=== PATIENT | male | born 1995 | race Caucasian/White ===

== ENCOUNTER 2021-05-07 10:19 | Emergency (ER) | payer BC ==
--- OUTSIDE RECORDS SUMMARY | 2021-05-07 10:22 | XMS REPORT | Continuity of Care Document ---
:1995 Author Organization [facility] t Address [address] [place] [address] Care Team Providers Name Role Phone Prezas DO Primary Care Physician LAB90 Attending Clinician Unavailable Prezas DO Attending Clinician Payers Payer Name Policy Type Policy Number Effective Date Expiration Date S ource BCBS 2 [id number] 2021 00:00:00 Problems Condition Condition Condition Status Onset Resolution Last Treating Co mments Source Name Details Category Date Date Treatment Clinician Date Epistaxis Epistaxis Disease Active Abundio josey 3-04 Seybold 00:00: 00 Tobacco Tobacco Disease Active Juan Carlos use use 3-04 Seybold 00:00: 00 Current Current Disease Active Juan Carlos every day every day 3-04 Seyb old vaping vaping 00:00: 00 Allergies, Adverse Reactions, Alerts Allergy Allergy Status Severity Reaction(s) Onset Inactive Treating Comm ents Source Name Type Date Date Clinician Penicill Propensi Active Juan Carlos in G ty to 3-04 Seybold adverse 00:00: reaction 00 s Social History Social Habit Start Date Stop Date Quantity Comments Source History of tobacco 2014-04-14 Cigarette Smoker Juan Carlos Snider use 00:00:00 Exposure to Not sure Juan Carlos collins SARS-CoV-2 (event) Education 2021-04-14 2021-04-14 12 Juan Carlos Snider 00:00:00 00:00:00 Cigarettes smoked 2021-04-14 2021-04-14 Juan Carlos Snider current (pack per 00:00:00 00:00:00 day) - Reported Tobacco use and 2021-04-14 2021-04-14 Former smokeless Abundio Snider exposure 00:00:00 00:00:00 tobacco user Alcohol intake 2021-04-14 2021-04-14 Ex-drinker Juan Carlos Alcaraz bold 00:00:00 00:00:00 (finding) Sex [birth year] Juan Carlos garcía 00:00:00 00:00:00 Smoking Status Start Date Stop Date Source Smokes tobacco daily 2021-04-14 00:00:00 Juan Carlos Snider Medications Ordered Filled Start Stop Current Ordering Indication Dosage Frequency Signature Comments Components Source Medication Medication Date Date Medication? Clinician (SIG) Name Name No known No No known Lazaro tucker medications - medication Se ybold 12:59: s 01 Vital Signs Vital Name Observation Time Observation Value Comments Source Systolic blood pressure 2021-04-14 18:57:00 129 mm[Hg] Juan Carlos Joseybgeraldine Diastolic blood 2021-04-14 18:57:00 87 mm[Hg] Lazaro tucker Seybgeraldine pressure Heart rate 2021-04-14 18:57:00 74 /min Juan Carlossteven sinha Body temperature 2021-04-14 18:57:00 36.56 Talia Torrimarie owens Seybgeraldine Respiratory rate 2021-04-14 18:57:00 14 /min Torri Snider Body height 2021-04-14 18:57:00 193 cm Juan Carlos sinha Body weight 2021-04-14 18:57:00 85.276 kg Juan Carlossteven beyercong BMI 2021-04-14 18:57:00 22.88 kg/m2 Juan Carlos Maire ernestine Procedures This patient has no known procedures. Encounters Start End Encounter Admission Attending Care Care Encounter Source Date/Time Date/Time Type Type Clinicians Facility Department ID 2021-04-14 2021-04-14 Outpatient LAB90 JUAN CARLOS RANGEL [id number] Juan Carlos 14:15:00 14:15:00 Seybol d 2021-04-14 2021-04-14 Office João Joel [id number] Juan Carlos 13:30:00 14:00:00 Visit Santiago Yanes [id number] Se raquel [id number] Results This patient has no known results.
--- NOTE | 2021-05-07 11:21 | RAD REPORT ---
EXAM DESCRIPTION: RAD - Foot Left 3 View - 05/07/2021 10:50 am CLINICAL HISTORY: Left great toe pain COMPARISON: No comparisons FINDINGS: No acute fracture. No malalignment. No significant focal degenerative changes. IMPRESSION: No acute osseous abnormality involving the left foot.
--- NOTE | 2021-05-07 11:23 | RAD REPORT ---
EXAM DESCRIPTION: RAD - Shoulder Left 2 View - 05/07/2021 10:50 am CLINICAL HISTORY: PAIN COMPARISON: No comparisons FINDINGS/IMPRESSION: No acute fracture. No malalignment. No significant focal degenerative changes.
--- NOTE | 2021-05-07 11:28 | RAD REPORT ---
EXAM DESCRIPTION: CT - Head Brain Wo Cont - 05/07/2021 11:22 am CLINICAL HISTORY: PAIN COMPARISON: Facial Bones W/ Mpr dated 05/07/2021 TECHNIQUE: All CT scans are performed using dose optimization technique as appropriate and may inclu de automated exposure control or mA/KV adjustment according to patient size. FINDINGS: No intracranial hemorrhage, hydrocephalus or extra-axial fluid collection.No areas of brai n edema or evidence of midline shift. The paranasal sinuses and mastoids are clear. The calvarium is intact. IMPRESSION: No acute intracranial abnormality.
--- NOTE | 2021-05-07 11:29 | RAD REPORT ---
EXAM DESCRIPTION: CT - CTFB CLINICAL HISTORY: FACIAL PAIN COMPARISON: No comparisons TECHNIQUE: Axial 2 mm thick images of the face were obtained with sagittal and coronal reconstructio n images. All CT scans are performed using dose optimization technique as appropriate and may include automated exposure control or mA/KV adjustment according to patient size. FINDINGS: No acute facial bone fracture is seen.The mandible is intact. The globes and orbital contents are grossly unremarkable.The paranasal sinuses and mastoids are clear . IMPRESSION: Negative for facial bone fracture.
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
[2021-05-07] MEDS ORDERED: IBUPROFEN 400 MG TAB ONE (12:05)
[2021-05-07] MEDS ORDERED: IBUPROFEN 200 MG TAB PO ONE (12:05)
[2021-05-07 12:16] VITALS: TEMP 98.8
[2021-05-07 12:17] VITALS: BP 120/78; O2SAT 97
== END 2021-05-07 12:12 | disposition home or self-care (01) ==
LOC: ER 10:19
DX: S05.12XA Contusion of eyeball and orbital tissues, left eye, initial encounter (principal); S93.502A Unspecified sprain of left great toe, initial encounter; M25.512 Pain in left shoulder; Y04.8XXA Assault by other bodily force, initial encounter; F17.210 Nicotine dependence, cigarettes, uncomplicated; Z88.0 Allergy status to penicillin
CPT/HCPCS: 70450; 70486; 76377; 99284